=== PATIENT | female | born 1950 | race Caucasian/White ===

== ENCOUNTER 2016-07-26 11:30 | Emergency (ER) | payer MEDICAID ==
[~2016-07-26] VITALS: Ht 170.2 cm; Wt 94.1 kg
[~2016-07-26 11:30] MED LIST: CETI10 PO; DILT-60 PO; DULO1CAP PO; ESCI20TA PO; HYDR-3133 PO; IBUP-232 PO; LORA1TAB12 PO; MORP1TAB25 PO; PRED20 PO; TRIA.1%T TOPICAL; ZANTTAB9 PO
[2016-07-26 11:37] VITALS: BP 122/68; PULSE 75; RESP 18; TEMP 98.6; O2SAT 96
--- NOTE | 2016-07-26 11:49 | PD ---
HPI Chief Complaint: Cold / Flu Symptoms Time Seen by Provider: 11:47 Travel History International Travel<30 days: No Contact w/Intl Traveler<30days: No Traveled to known affect area: No History of Present Illness HPI 65-year-old female presents to the ED for evaluation of 3 week history of nonproductive cough, clear rhinorrhea. She states that she had a single day of sore throat at the beginning of the illness, resolved on presentation. She endorses occasional wheezing, chills and sweats overnight. Denies ear pain, headaches, abdominal pain, nausea or vomiting. Shes been treating with Flonase daily with some improvement of her symptoms. The patient reports that she saw her PCP last week who checked her lungs and told her that she didn't need antibiotics. PFSH Past Medical History Arthritis: Yes (OSTEOARTHRITIS AND OSTEOPEROSIS) Asthma: No Autoimmune Disease: No Blood Disorders: No Anxiety: Yes Depression: Yes Heart Rhythm Problems: No Cancer: No Cardiovascular Problems: No High Cholesterol: No Chemotherapy: No Chest Pain: No Congestive Heart Failure: No COPD: No Cerebrovascular Accident: No Diabetes: No Diminished Hearing: No Diverticulitis: Yes Endocrine: No Gastrointestinal Disorders: Yes (ESOPHAGEAL SPASM, DILITATION, GALLBLADDER REMOVED) GERD: No Glaucoma: No Genitourinary: Yes (BLADDER PROLAPSE) Headaches: No Hepatitis: No Hiatal Hernia: No Hypertension: No Immune Disorder: No Kidney Stones: No Musculoskeletal: Yes (LUMBAR DISCOMFORT--SPINAL STENOSIS) Neurologic: No Psychiatric: Yes (ANXIETY) Reproductive: No Respiratory: No Immunizations Current: No Migraines: No Myocardial Infarction: No Pancreatitis: Yes Radiation Therapy: No Renal Failure: No Seizures: No Sickle Cell Disease: No Sleep Apnea: No Thyroid Disease: No Ulcer: No PNEUMOCCOCAL Vaccine (Year): 1 ?: Not Menopausal: Yes Past Surgical History Abdominal Surgery: Yes (CHOLY) AICD: No Appendectomy: Yes Body Medical Devices: RIGHT HIP SCREWS Cardiac Surgery: No Cholecystectomy: Yes Ear Surgery: No Endocrine Surgery: No Eye Surgery: No Genitourinary Surgery: No Gynecologic Surgery: No Hysterectomy: Yes Joint Replacement: No Neurologic Surgery: No Oral Surgery: Yes (TONSILLECTOMY) Pacemaker: No Thoracic Surgery: No Other Surgery: Yes (CHOLECYSTECTOMY 2006, ) Social History Alcohol Use: No Tobacco Use: No (QUIT 10 YEARS AGO) Substance Use: No Allergies-Medications (Allergen,Severity, Reaction): Coded Allergies: *MDRO Multi-Drug Resistant Organism (Verified Adverse Reaction, Unknown, ) MRSA PCR screen (nares) POSITIVE - 10/22/15 Reported Meds & Prescriptions Reported Meds & Active Scripts Active Lorazepam 1 Mg Tab 1 Mg PO TID PRN Escitalopram (Escitalopram Oxalate) 20 Mg Tab 20 Mg PO DAILY Reported Diltiazem (Diltiazem HCl) 120 Mg Tab 140 Mg PO QID Morphine ER (Morphine Sulfate) 30 Mg Tab 30 Mg PO Q8H Review of Systems Except as stated in HPI: all other systems reviewed are Neg Physical Exam Narrative GENERAL: Well-nourished, well-developed white female with a raspy voice in no acute distress SKIN: Warm and dry. HEAD: Normocephalic. Atraumatic. EYES: No scleral icterus. No injection or drainage. PERRLA. EOMI. ENT: Pearly clark tympanic membranes bilaterally. Nasal mucosa is moist. Oropharynx with mild posterior erythema. No edema or exudate. NECK: Supple, trachea midline. No JVD or lymphadenopathy. CARDIOVASCULAR: Regular rate and rhythm without murmurs, gallops, or rubs. RESPIRATORY: Breath sounds equal bilaterally. Mild end expiratory wheezing in bilateral lung alanis. No accessory muscle use. GASTROINTESTINAL: Abdomen soft, non-tender, nondistended. + Bowel sounds MUSCULOSKELETAL: No cyanosis, or edema. Patient is ambulatory and moves the extremities spontaneously. BACK: Nontender without obvious deformity. No CVA tenderness. Data Data Last Documented VS Vital Signs Date Time Temp Pulse Resp B/P Pulse Ox O2 Delivery O2 Flow Rate FiO2 07/26/16 11:37 98.6 75 18 122/68 96 Orders Albuterol-Ipratropium Neb (Duoneb Neb) (07/26/16 12:00) Dexamethasone Inj (Decadron Inj) (07/26/16 12:00) MDM Medical Decision Making Medical Screen Exam Complete: Yes Emergency Medical Condition: Yes Differential Diagnosis viral syndrome versus seasonal allergies versus upper respiratory infection versus bronchitis versus pneumonia versus other Narrative Course 65-year-old female presents to the ED for evaluation of 3 week history of nonproductive cough, clear rhinorrhea. She states that she had a single day of sore throat at the beginning of the illness, resolved on presentation. She endorses occasional wheezing, chills and sweats overnight. Denies ear pain, headaches, abdominal pain, nausea or vomiting. Vitals reviewed. Physical exam reveals a nontoxic-appearing white female in no acute distress. The ENT exam is unremarkable. There is mild end expiratory wheezing in bilateral lung alanis. The patient does have a raspy voice and a wet sounding cough. She is administered IM steroids and DuoNeb 2. Recheck of the patient reveals subjective improvement of breathing as well as improvement of lung sounds. Patient takes a QT prolonging agent so azithromycin is not appropriate. She is prescribed doxycycline 100 mg twice a day 5 days and a Medrol Dosepak. She is encouraged to continue with the Flonase daily and consider adding a second generation antihistamine to her medication regimen. She is instructed to take the medication as prescribed, follow up with her primary care provider this week. She indicated understanding of instructions and is amenable to plan of care. She is stable and discharged home. Diagnosis Primary Impression: URI (upper respiratory infection) Qualified Code: J06.9 - Upper respiratory tract infection, unspecified type Referrals: Primary Care Physician Patient Instructions: General Instructions, Upper Respiratory Infection (ED) Additional Instructions: Rest, hydrate. Take antibiotics twice a day as prescribed. Begin the medrol does pack TOMORROW. Consider adding a second generation antihistamine ( Claritin, Zyrtec, Alina) to your daily medications. Continue with Flonase daily. Follow-up with the primary care provider this week. Return to the ED for any urgent or emergent medical condition. Med/Other Pt SpecificInfo: Prescription(s) given Disposition: DISCHARGE HOME Condition: Stable Philly Forde Jul 26, 2016 11:49 Begin the medrol does pack TOMORROW. Consider adding a second generation antihistamine ( Claritin, Zyrtec, Alina) to your daily medications. Continue with Flonase daily. Follow-up with the primary care provider this week. Return to the ED for any urgent or emergent medical condition. Med/Other Pt SpecificInfo: Prescription(s) given Scripts Methylprednisolone Dosepak (Medrol Dosepak)4 Mg Dspk4 Mg PO DIRECTED #1 DSPK Ref 0 Per Pharmacist direction Prov:Lillian Cavazos MD 07/26/16 Doxycycline Hyclate 100 Mg Plc675 Mg PO BID 5 Days Ref 0 Prov:Lillian Cavazos MD 07/26/16 Disposition: 01 DISCHARGE HOME Condition: Stable Philly Forde Jul 26, 2016 11:49
[2016-07-26] MEDS ORDERED: DEXAMETHASONE SOD PHOS 4 MG/ML VIAL IM ONE (12:00)
[2016-07-26] MEDS: RESP: ALBUTEROL 2.5 MG/IPRATROPIUM 0.5 MG NEB (SCH) INH ×2 (12:03→12:04)
[2016-07-26] MEDS ORDERED: MEDR4PAK PO (12:11)
[2016-07-26] MEDS ORDERED: DOXY100C PO (12:11)
[2016-07-26] MEDS ORDERED: DILT120T PO (12:18)
[2016-08-08] MEDS ORDERED: CETI10 PO (09:23)
[2016-08-10] MEDS ORDERED: IBUP-232 PO (08:20)
== END 2016-07-26 12:37 | disposition home or self-care (01) ==
LOC: PHEFT 11:30
DX: J06.9 Acute upper respiratory infection, unspecified (principal); R05 Cough; R06.2 Wheezing; R68.83 Chills (without fever); R61 Generalized hyperhidrosis; Z87.39 Personal history of other diseases of the musculoskeletal system and connective tissue; Z86.59 Personal history of other mental and behavioral disorders; Z87.19 Personal history of other diseases of the digestive system; Z87.448 Personal history of other diseases of urinary system; Z87.891 Personal history of nicotine dependence
CPT/HCPCS: 94640; 94664; 96372; 99283; J1100

== ENCOUNTER 2016-09-12 19:25 | Emergency (ER) | payer OTHER, MEDICAID ==
[~2016-09-12 19:25] MED LIST changes: -DILT-60 PO; +DILT120T PO; -DULO1CAP PO; -HYDR-3133 PO; -PRED20 PO; -TRIA.1%T TOPICAL; -ZANTTAB9 PO
[2016-09-12 19:29] VITALS: BP 130/80; PULSE 71; RESP 18; TEMP 98.8; O2SAT 97
[2016-09-12] MEDS ORDERED: DEXAMETHASONE SOD PHOS 4 MG/ML VIAL IM ONE (19:45)
--- NOTE | 2016-09-12 19:50 | PD ---
HPI Chief Complaint: Musculoskeletal Complaint Time Seen by Provider: 19:44 Travel History International Travel<30 days: No Contact w/Intl Traveler<30days: No Traveled to known affect area: No History of Present Illness HPI 66-year-old female with a history of esophageal spasms, anxiety and chronic low back pain presents to the emergency department for evaluation of left wrist pain for 2 days. Patient denies any injury or trauma to her wrist. States she woke up with this pain. The pain is aggravated with movement and palpation of the wrist. Denies any alleviating factors. States that she takes morphine 30 mg twice daily for her chronic back pain, has been on this for 10 years. States that she did take ibuprofen 600 mg earlier today to try to help with her wrist. She is also been applying ice. Denies any numbness or tingling, weakness, fever, chills, nausea, vomiting. Denies any prior injury or trauma to his wrist. PCP Dr. Deluca. Nose complaints. [facility] Past Medical History Arthritis: Yes (OSTEOARTHRITIS AND OSTEOPEROSIS) Asthma: No Autoimmune Disease: No Blood Disorders: No Anxiety: Yes Depression: Yes Heart Rhythm Problems: No Cancer: No Cardiovascular Problems: No High Cholesterol: No Chemotherapy: No Chest Pain: No Congestive Heart Failure: No COPD: No Cerebrovascular Accident: No Diabetes: No Diminished Hearing: No Diverticulitis: Yes Endocrine: No Gastrointestinal Disorders: Yes (ESOPHAGEAL SPASM, DILITATION, GALLBLADDER REMOVED) GERD: No Glaucoma: No Genitourinary: Yes (BLADDER PROLAPSE) Headaches: No Hepatitis: No Hiatal Hernia: No Hypertension: No Immune Disorder: No Kidney Stones: No Musculoskeletal: Yes (LUMBAR DISCOMFORT--SPINAL STENOSIS) Neurologic: No Psychiatric: Yes (ANXIETY) Reproductive: No Respiratory: No Immunizations Current: No Migraines: No Myocardial Infarction: No Pancreatitis: Yes Radiation Therapy: No Renal Failure: No Seizures: No Sickle Cell Disease: No Sleep Apnea: No Thyroid Disease: No Ulcer: No PNEUMOCCOCAL Vaccine (Year): 1 ?: Not Menopausal: Yes Past Surgical History Abdominal Surgery: Yes (LEIGH) AICD: No Appendectomy: Yes Body Medical Devices: RIGHT HIP SCREWS Cardiac Surgery: No Cholecystectomy: Yes Ear Surgery: No Endocrine Surgery: No Eye Surgery: No Genitourinary Surgery: No Gynecologic Surgery: No Hysterectomy: Yes Joint Replacement: No Neurologic Surgery: No Oral Surgery: Yes (TONSILLECTOMY) Pacemaker: No Thoracic Surgery: No Other Surgery: Yes (CHOLECYSTECTOMY 2007, ) Social History Alcohol Use: No Tobacco Use: No (QUIT 10 YEARS AGO) Substance Use: No Allergies-Medications (Allergen,Severity, Reaction): Coded Allergies: *MDRO Multi-Drug Resistant Organism (Verified Adverse Reaction, Unknown, ) MRSA PCR screen (nares) POSITIVE - 10/22/15 Reported Meds & Prescriptions Reported Meds & Active Scripts Active Naproxen 500 Mg Tab 500 Mg PO BID 7 Days Cetirizine (Cetirizine HCl) 10 Mg Tab 10 Mg PO DAILY Lorazepam 1 Mg Tab 1 Mg PO TID PRN Escitalopram (Escitalopram Oxalate) 20 Mg Tab 20 Mg PO DAILY Reported Diltiazem (Diltiazem HCl) 120 Mg Tab 140 Mg PO QID Morphine ER (Morphine Sulfate) 30 Mg Tab 30 Mg PO Q8H Review of Systems Except as stated in HPI: all other systems reviewed are Neg Physical Exam Narrative GENERAL: Well-nourished and well-developed pleasant female patient in no acute distress who is nontoxic appearing. SKIN: Warm and dry. HEAD: Normocephalic and atraumatic. EYES: No injection, drainage, or hyphema noted. PERRLA. EOMI. ENT: No nasal drainage noted. Oropharynx is clear. NECK: Supple and the trachea is midline. CARDIOVASCULAR: Regular rate and rhythm. RESPIRATORY: Breath sounds are equal bilaterally with no accessory muscle use, wheezing, rhonchi, or crackles. GASTROINTESTINAL: Abdomen is soft, non-tender, and nondistended. MUSCULOSKELETAL: Tenderness to palpation of left wrist, limited range of motion due to pain. Radial pulses 2+ bilaterally. No obvious deformities, swelling, cyanosis, or ecchymosis is present throughout the upper and lower extremities. Patient has full range of motion in all other extremities without any signs of neurovascular compromise. NEUROLOGICAL: Awake, alert, and oriented. Normal speech and gait. Cranial nerves are grossly intact. Data Data Last Documented VS Vital Signs Date Time Temp Pulse Resp B/P Pulse Ox O2 Delivery O2 Flow Rate FiO2 09/12/16 19:29 98.8 71 18 130/80 97 Orders Wrist, Complete ([id number]) (09/12/16 19:43) Dexamethasone Inj (Decadron Inj) (09/12/16 19:45) Splint Or Brace Apply/Monitor (09/12/16 20:13) [facility] Medical Decision Making Medical Screen Exam Complete: Yes Emergency Medical Condition: Yes Differential Diagnosis Arthritis versus sprain versus gout versus fracture Narrative Course 66-year-old female presents to the emergency department for evaluation of left wrist pain for 2 days. Patient is afebrile, vital signs are stable. No injury or trauma to the wrist. Left upper extremity is neurovascularly intact. X-ray imaging has been ordered and is pending. Patient is administered Decadron 8 mg IM. X-ray of the left wrist shows osteoarthritis and other degenerative changes, no acute abnormality or fracture. Assessment findings with the patient. Discussed supportive care. She'll be prescribed naproxen. Advised follow-up with her PCP or an orthopedist if her symptoms persist. Patient verbalizes understanding and agreement with treatment plan. Diagnosis Primary Impression: Osteoarthritis of left wrist Qualified Code: M19.032 - Primary osteoarthritis of left wrist Referrals: Orthopedist Primary Care Physician Patient Instructions: General Instructions, Osteoarthritis (ED) Additional Instructions: Juanjo wrap. Apply ice or heat to help alleviate symptoms. Take medication as prescribed with food and a full glass of water. Follow-up with your Primary Care Physician. Return to the ED for any acute worsening of symptoms. Med/Other Pt SpecificInfo: Prescription(s) given Scripts Naproxen 500 Mg [id number] Mg PO BID 7 Days Ref 0 Prov:Fausto Gallo MD 09/12/16 Disposition: 01 DISCHARGE HOME Condition: Stable Aminata Fuentes September 12, 2016 19:50
[2016-09-12] MEDS ORDERED: NAPR500T PO (20:14)
--- NOTE | 2016-09-12 20:20 | RADHPO ---
EXAM DATE/TIME: 09/12/2016 19:54 [facility] COMPARISON: No previous studies available for comparison. INDICATIONS : Left wrist pain for 2 days with no known injury MEDICAL HISTORY : None. SURGICAL HISTORY : None. ENCOUNTER: Initial ACUITY: 2 days PAIN SCORE: 10/10 LOCATION: Left entire wrist FINDINGS: AP, lateral and oblique views of the left wrist were obtained and demonstrate mild osteopenia and nor mal alignment. There are degenerative changes greatest involving the first metacarpal carpal joint wi th joint space loss, sclerosis and hypertrophic change. There is faint calcification in the region th e tracheal cartilage. There is mild soft tissue prominence over the dorsum of the wrist. CONCLUSION: Osteopenia and osteoarthritic change. Luis River MD on September 12, 2016 at 20:15 Board Certified Radiologist. This report was verified electronically.
== END 2016-09-12 20:31 | disposition home or self-care (01) ==
LOC: PHEFT 19:25
DX: M19.032 Primary osteoarthritis, left wrist (principal); G89.29 Other chronic pain; Z87.891 Personal history of nicotine dependence
CPT/HCPCS: 73110; 96372; 99283; J1100

== ENCOUNTER → 2016-10-16 | Outpatient (CLI) | payer OTHER, MEDICAID ==
[~2016-10-16] MED LIST changes: -IBUP-232 PO; +LEXA20TA PO; +NAPR500T PO
--- NOTE | 2016-10-23 08:26 | RSPPFT ---
DATE OF PROCEDURE: 10/16/16 COMMENTS: VOLUMES DYNAMIC: FVC and FEV1 normal. STATIC: VTG, FRC and RV normal. FLOWS: FEV1% and FEF 25-75 normal. DIFFUSION: Normal. FLOW VOLUME LOOP: Normal configuration. IMPRESSION: Normal pulmonary functions.
== END ==
LOC: PHRSP 07:21
PROVIDERS: ATTEND Internal Medicine
DX: J44.9 Chronic obstructive pulmonary disease, unspecified (principal)
CPT/HCPCS: 94060; 94620; 94726; 94729

== ENCOUNTER 2016-10-30 21:37 | Emergency (ER) | payer OTHER, MEDICAID ==
[~2016-10-30] VITALS: Ht 167.6 cm; Wt 95.2 kg
[~2016-10-30 21:37] MED LIST changes: -LEXA20TA PO
[2016-10-30 21:44] VITALS: BP 156/81; PULSE 80; RESP 20; TEMP 98.7; O2SAT 97
--- NOTE | 2016-10-30 22:14 | PD ---
HPI Chief Complaint: Pain: Acute or Chronic Time Seen by Provider: 21:52 Travel History International Travel<30 days: No Contact w/Intl Traveler<30days: No Traveled to known affect area: No History of Present Illness HPI Patient is a 66 year old female who comes in complaining of low back pain that started earlier today. She says the pain goes across her lower back and is radiating down her right leg. She has history of back pain, but says this is worse than usual. She takes 30mg Morphine at home. She says this helps, but the pain comes back in 2 hours. She says she is afraid her pain is going to come back. She denies any injuries. She denies any urinary symptoms. She denies any fever or chills. She denies any numbness or tingling. PFSH Past Medical History Arthritis: Yes (OSTEOARTHRITIS AND OSTEOPEROSIS) Asthma: No Autoimmune Disease: No Blood Disorders: No Anxiety: Yes Depression: Yes Heart Rhythm Problems: No Cancer: No Cardiovascular Problems: No High Cholesterol: No Chemotherapy: No Chest Pain: No Congestive Heart Failure: No COPD: No Cerebrovascular Accident: No Diabetes: No Diminished Hearing: No Diverticulitis: Yes Endocrine: No Gastrointestinal Disorders: Yes (ESOPHAGEAL SPASM, DILITATION, GALLBLADDER REMOVED) GERD: No Glaucoma: No Genitourinary: Yes (BLADDER PROLAPSE) Headaches: No Hepatitis: No Hiatal Hernia: No Hypertension: No Immune Disorder: No Kidney Stones: No Musculoskeletal: Yes (LUMBAR DISCOMFORT--SPINAL STENOSIS) Neurologic: No Psychiatric: Yes (ANXIETY) Reproductive: No Respiratory: No Immunizations Current: No Migraines: No Myocardial Infarction: No Pancreatitis: Yes Radiation Therapy: No Renal Failure: No Seizures: No Sickle Cell Disease: No Sleep Apnea: No Thyroid Disease: No Ulcer: No PNEUMOCCOCAL Vaccine (Year): 1 ?: Not Menopausal: Yes Past Surgical History Abdominal Surgery: Yes (LEIGH) AICD: No Appendectomy: Yes Body Medical Devices: RIGHT HIP SCREWS Cardiac Surgery: No Cholecystectomy: Yes Ear Surgery: No Endocrine Surgery: No Eye Surgery: No Genitourinary Surgery: No Gynecologic Surgery: No Hysterectomy: Yes Joint Replacement: No Neurologic Surgery: No Oral Surgery: Yes (TONSILLECTOMY) Pacemaker: No Thoracic Surgery: No Other Surgery: Yes (CHOLECYSTECTOMY 2006, ) Social History Alcohol Use: No Tobacco Use: No (QUIT 10 YEARS AGO) Substance Use: No Allergies-Medications (Allergen,Severity, Reaction): Coded Allergies: *MDRO Multi-Drug Resistant Organism (Verified Adverse Reaction, Unknown, ) MRSA PCR screen (nares) POSITIVE - 10/22/15 Reported Meds & Prescriptions Reported Meds & Active Scripts Active Naproxen 500 Mg Tab 500 Mg PO BID 7 Days Cetirizine (Cetirizine HCl) 10 Mg Tab 10 Mg PO DAILY Lorazepam 1 Mg Tab 1 Mg PO TID PRN Escitalopram (Escitalopram Oxalate) 20 Mg Tab 20 Mg PO DAILY Reported Diltiazem (Diltiazem HCl) 120 Mg Tab 140 Mg PO QID Morphine ER (Morphine Sulfate) 30 Mg Tab 30 Mg PO Q8H Review of Systems Except as stated in HPI: all other systems reviewed are Neg General / Constitutional: No: Fever, Chills HENT: No: Headaches, Lightheadedness Cardiovascular: No: Chest Pain or Discomfort Respiratory: No: Shortness of Breath Gastrointestinal: No: Nausea, Vomiting Genitourinary: No: Dysuria, Incontinence Musculoskeletal: Positive: Pain Skin: No Change in Pigmentation Neurologic: No: Sensory Disturbance Physical Exam Narrative GENERAL: Awake and alert, in no acute distress. SKIN: Focused skin assessment warm/dry. No evidence of infection. HEAD: Atraumatic. Normocephalic. EYES: Pupils equal and round. No scleral icterus. ENT: No nasal bleeding or discharge. Mucous membranes pink and moist. NECK: Trachea midline. No JVD. CARDIOVASCULAR: Regular rate and rhythm. No murmur appreciated. RESPIRATORY: No accessory muscle use. Clear to auscultation. Breath sounds equal bilaterally. GASTROINTESTINAL: Abdomen soft, non-tender, nondistended. No CVA tenderness. MUSCULOSKELETAL: No obvious deformities. No clubbing. No cyanosis. No edema. No spinal tenderness. Tender to palpation of the right sacroiliac area. Pain with straight leg raise bilaterally. NEUROLOGICAL: Awake and alert. No obvious cranial nerve deficits. Motor grossly within normal limits. Normal speech. No saddle anesthesia. PSYCHIATRIC: Appropriate mood and affect; insight and judgment normal. Data Data Last Documented VS Vital Signs Date Time Temp Pulse Resp B/P Pulse Ox O2 Delivery O2 Flow Rate FiO2 10/30/16 21:44 98.7 80 20 156/81 97 Orders Ketorolac Inj (Toradol Inj) (10/30/16 22:15) Diazepam (Valium) (10/30/16 22:15) [facility] Medical Decision Making Medical Screen Exam Complete: Yes Emergency Medical Condition: Yes Medical Record Reviewed: Yes Differential Diagnosis Acute on chronic pain versus sciatica versus arthritis Narrative Course Patient is a 66-year-old female comes in complaining of lower back pain. She is already taking 30 mg of morphine for her pain. Exam shows tenderness to the right sacroiliac area. Patient has no red flag signs. Patient given Toradol and Valium. Advised follow-up with her doctor. Advised to continue pain medication as needed. Advised to return to the emergency department as needed for any worsening symptoms. Diagnosis Primary Impression: Sciatica Qualified Code: M54.31 - Sciatica of right side Additional Impression: Chronic low back pain Qualified Code: M54.41 - Chronic bilateral low back pain with right-sided sciatica Patient Instructions: General Instructions, Sciatica (ED) Additional Instructions: Follow-up with your doctors. Take pain medication as needed. Try to stretch regularly. Return to the emergency department as needed for any worsening symptoms. Disposition: 01 DISCHARGE HOME Condition: Stable Dea Colunga MD Oct 30, 2016 22:14
[2016-10-30] MEDS ORDERED: DIAZEPAM 10 MG TAB PO ONE (22:15)
[2016-10-30] MEDS ORDERED: KETOROLAC TROMETHAMINE 60 MG/2 ML (IM) VIAL IM ONE (22:15)
[2016-10-30] MEDS ORDERED: LEXA20TA PO (22:23)
[2016-10-30] MEDS ORDERED: CYCLOBENZAPRINE HCL 10 MG TAB PO ONE (22:30)
[2016-10-30] MEDS ORDERED: DIAZEPAM 5 MG TAB PO ONE (22:30)
== END 2016-10-30 23:02 | disposition home or self-care (01) ==
LOC: PHED 21:37
DX: M54.41 Lumbago with sciatica, right side (principal); M81.0 Age-related osteoporosis without current pathological fracture; Z87.891 Personal history of nicotine dependence
CPT/HCPCS: 96372; 99284; J1885